=== PATIENT | female | born 1980 ===

== ENCOUNTER 2020-11-22 14:58 | Outpatient (REF) | payer OTHER, SELFPAY ==
[2020-11-25 18:11] LABS: C. trachomatis RNA TMA NOT DETECTED (NOT DETECTED); N. gonorrhoeae RNA TMA NOT DETECTED (NOT DETECTED)
== END 2020-11-22 14:59 | disposition home or self-care (01) ==
LOC: HO.LAB 14:58
PROVIDERS: Visit Provider Advanced Practice Midwife
DX: Z01.411 Encounter for gynecological examination (general) (routine) with abnormal findings (principal); R10.2 Pelvic and perineal pain; Z20.2 Contact with and (suspected) exposure to infections with a predominantly sexual mode of transmission
CPT/HCPCS: 36415; 87491; 87591

== ENCOUNTER 2020-12-03 11:38 | Outpatient (REF) | payer OTHER, SELFPAY ==
--- NOTE | ~2020-12-03 | US_ITS ---
EXAMINATION: PELVIC ULTRASOUND CLINICAL INFORMATION: Pelvic and perineal pain COMPARISON: Previous pelvic ultrasound August 2019 TECHNIQUE: Transabdominal and transvaginal pelvic ultrasound was performed. Transvaginal exam was performed for better visualization of the uterus and ovaries. FINDINGS: The uterus is anteverted and measures 10.1 x 4.1 x 5.8 cm in dimension. No focal uterine lesion is seen. Endometrial thickness is normal and measures 1.5 cm. There are nabothian cysts seen in the cervix. The ovaries are normal-appearing. The right ovary measures 4.5 x 2.8 x 1.9 cm and the left ovary measures 3.4 x 1.9 x 2.5 cm. There is no fluid in the pelvis. US/US transvaginal IMPRESSION: Unremarkable exam.
--- NOTE | ~2020-12-03 | US_ITS ---
EXAMINATION: PELVIC ULTRASOUND CLINICAL INFORMATION: Pelvic and perineal pain COMPARISON: Previous pelvic ultrasound August 2019 TECHNIQUE: Transabdominal and transvaginal pelvic ultrasound was performed. Transvaginal exam was performed for better visualization of the uterus and ovaries. FINDINGS: The uterus is anteverted and measures 10.1 x 4.1 x 5.8 cm in dimension. No focal uterine lesion is seen. Endometrial thickness is normal and measures 1.5 cm. There are nabothian cysts seen in the cervix. The ovaries are normal-appearing. The right ovary measures 4.5 x 2.8 x 1.9 cm and the left ovary measures 3.4 x 1.9 x 2.5 cm. There is no fluid in the pelvis. US/US pelvic complete IMPRESSION: Unremarkable exam.
== END 2020-12-03 11:39 | disposition home or self-care (01) ==
LOC: HO.US 11:38
PROVIDERS: Visit Provider Advanced Practice Midwife
DX: R10.2 Pelvic and perineal pain (principal)
CPT/HCPCS: 76830; 76856

== ENCOUNTER → 2020-12-06 15:47 | Outpatient (BNVA) | payer MEDICAID, SELFPAY | PROVIDERS: Visit Provider Advanced Practice Midwife | DX: Z20.2 Contact with and (suspected) exposure to infections with a predominantly sexual mode of transmission (principal) ==

== ENCOUNTER 2020-12-23 07:01 | Outpatient (RCR) | payer OTHER, SELFPAY | END 2021-01-01 08:00 | disposition home or self-care (01) | LOC: HO.PT 07:01 | PROVIDERS: PCP Internal Medicine; Visit Provider Advanced Practice Midwife | DX: R10.2 Pelvic and perineal pain (principal) | CPT/HCPCS: 97110; 97112; 97162 ==

== ENCOUNTER → 2022-07-09 09:48 | Outpatient (BNVA) | payer OTHER, SELFPAY | PROVIDERS: PCP Internal Medicine; Visit Provider Advanced Practice Midwife | DX: N90.7 Vulvar cyst (principal) | CPT/HCPCS: 99212 ==

== ENCOUNTER 2022-08-06 14:39 | Outpatient (REF) | payer OTHER, SELFPAY ==
[2022-08-11 20:52] LABS: HPV mRNA E6/E7 rflx Not Detected (Not Detected)
== END 2022-08-06 14:40 | disposition home or self-care (01) ==
LOC: HO.LNP 14:39
PROVIDERS: Visit Provider Advanced Practice Midwife
DX: Z01.419 Encounter for gynecological examination (general) (routine) without abnormal findings (principal); Z11.51 Encounter for screening for human papillomavirus (HPV)
CPT/HCPCS: 87624; 88142

== ENCOUNTER 2022-08-06 15:57 | Outpatient (REF) | payer OTHER, SELFPAY | END 2022-08-06 15:58 | disposition home or self-care (01) | LOC: HO.LNP 15:57 | PROVIDERS: Visit Provider Advanced Practice Midwife | DX: Z13.89 Encounter for screening for other disorder (principal) ==

== ENCOUNTER 2022-09-07 08:41 | Outpatient (REF) | payer OTHER, SELFPAY ==
--- NOTE | ~2022-09-07 | MM_ITS ---
EXAMINATION: MM SCREENING DIGITAL BREAST TOMOSYNTHESIS, BILATERAL CLINICAL INFORMATION: Screening. Asymptomatic. The lifetime risk of breast cancer based on the Tyrer-Cuzick Model is 8%. COMPARISON: Mammography: 10/21/2018 (baseline) TECHNIQUE: Digital breast tomosynthesis is performed in both the craniocaudal and mediolateral oblique views along with computer-aided detection (CAD). Synthesized 2D images are generated from the tomosynthesis. FINDINGS: There are scattered areas of fibroglandular density (ACR BI-RADS breast composition Category b). There are no significant masses, abnormal calcifications, or other abnormalities. Parenchymal pattern is similar to prior exam. No architectural abnormality. The axilla are unremarkable. No significant changes. MM/MM tomosynthesis screening BI IMPRESSION: No mammographic evidence of malignancy. ASSESSMENT: BI-RADS 1: Negative RECOMMENDATION: Routine annual mammography screening. This patient's information was entered into a reminder system with a target due date for their next mammogram.
== END 2022-09-07 08:42 | disposition home or self-care (01) ==
LOC: HO.MAMMO 08:41
PROVIDERS: Visit Provider Advanced Practice Midwife
DX: Z12.31 Encounter for screening mammogram for malignant neoplasm of breast (principal)
CPT/HCPCS: 77063; 77067

== ENCOUNTER 2023-08-13 10:31 | Outpatient (AMB) | payer OTHER, SELFPAY ==
[2023-08-13 10:33] VITALS: BP 106/60; PULSE 80; O2SAT 99; BMI 30.5
--- NOTE | 2023-08-13 10:33 | MHC.PC.OV ---
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: Not Required per policy Accompanied by: Self / Same As Patient Allergies acetaminophen [From PERCOCET] Allergy (Severe, Verified 08/13/23 10:47) HIVES oxycodone [From PERCOCET] Allergy (Severe, Verified 08/13/23 10:47) HIVES hydrocodone [Vicodin] Allergy (Unknown, Verified 08/13/23 10:47) Itching Medication List - Last Reconciled 08/13/23 by MARILYNN Miner multivitamin with iron (Daily Multiple Vitamins with Iron tablet) 1 tab PO DAILY Tobacco use date assessed: 08/13/23 Dental Screening Dental Screen Date: 08/13/23 Did you have a dental visit in the last 12 months?: Yes Did you have a dental problem in the last 6 months where you did not have access to dental care?: No Was dental information given to patient?: Patient has dentist HPI HPI Comments History of Present Illness Details 43-year-old female past medical history significant for pelvic pain, lumbar back pain and liver hemangioma. Patient of Dr. Howe, last seen in 2019. Patient presents today to reestablish care. 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 Patient requesting referral back to [facility] for further evaluation and treatment of this. Referral entered. Patient reports burning lumbar back pain, states she goes to the gym 3 times a week. Patient states she does not take any medications for this. Patient also reports malodorous urine, denies dysuria, frequency, hesitancy and flank. Urinalysis ordered. Fasting labs ordered. [facility] Surgical History History of loop electrical excision procedure (LEEP) Family History (Updated 08/13/23 @ 10:51 by MARILYNN Miner) Maternal Grandmother Uterine cancer Father Pacemaker Social History (Updated 08/13/23 @ 10:52 by MARILYNN Miner) Housing: House Alcohol intake: current Alcohol intake frequency: holidays/special occasions only Patient Tobacco Use Status: Current everyday Tobacco user Cigarettes Per Day: 4 e-Cigarette/Vaping Use: Never Used Current occupational status: employed Cognitive needs: No Hearing needs: No Vision needs: Yes Female Reproductive History Menstrual Age of Menarche: 14 Questionnaire PHQ-9 Over the last 2 weeks, how often have you been bothered by any of the following problems? 1. Little interest or pleasure in doing things: not at all 2. Feeling down, depressed, or hopeless: not at all 3. Trouble falling or staying asleep, or sleeping too much: not at all 4. Feeling tired or having little energy: not at all 5. Poor appetite or overeating: not at all 6. Feeling bad about yourself - or that you are a failure or have let yourself or your family down: not at all 7. Trouble concentrating on things, such as reading the newspaper or watching television: not at all 8. Moving or speaking so slowly that other people could have noticed. Or the opposite - being so fidgety or restless that you have been moving around a lot more than usual: not at all 9. Thoughts that you would be better off or of hurting yourself in some way: not at all Total score: 0 Depression Screening Interpretation: Negative Depression Screening Done: Yes 21809 - PHQ-9 Billing: Yes Source: Developed by Drs. Harsha Mosqueda, Halle Skaggs, Parker Guzman and colleagues, with an educational hermilo from [employer]. Thrive Questionnaire Date Thrive assessed: 08/13/23 I am a: Patient What is your living situation today?: I have a steady place to live Within the past 12 months, did the food you bought not last and you didn't have the money to get more?: Never true Within the past 12 months, did you worry whether your food would run out before you got money to buy more?: Never true Do you have trouble paying for medicines?: No Do you have trouble getting transportation to medical appointments?: No Do you have trouble paying your heating and electricity bill?: No Do you have trouble taking care of your child, family member or friend?: No Do you have trouble with day-to-day activities such as bathing, preparing meals, shopping, managing finances, etc.?: No Are you currently unemployed and looking for a job?: No Are you interested in more education?: No Please select the resources that you would like help with: None AUDIT C Alcohol Use Questionnaire (AUDIT-C) 1. How often do you have a drink containing alcohol?: 2-3 times a week 2. How many drinks containing alcohol do you have on a typical day when you are drinking?: 1 or 2 3. How often do you have six or more drinks on one occasion?: Never Total Score: 3 DEENA-7 AMB Questionnaire DEENA-7 Date DEENA - 7 assessed: 08/13/23 Feeling nervous, anxious, or on edge: 0 = Not at all Not being able to stop or control worryin = Not at all Worrying too much about different things: 0 = Not at all Trouble relaxin = Not at all Being so restless that it is hard to sit still: 0 = Not at all Becoming easily annoyed or irritable: 0 = Not at all Feeling afraid as if something awful might happen: 0 = Not at all Total DEENA-7 score (0-4 normal; 5-9 mild; 10-14 moderate; 15-21 severe): 0 Source: Developed by Drs. Harsha Mosqueda, Halle Skaggs, Parker Guzman and colleagues, with an educational hermilo from [employer]. DEENA-7 Assessment Billing DEENA-7 Assessment Tool: DEENA-7 Assessment 31508 Review of Systems Const Denies chills, Denies fatigue, Denies fever(s) and Denies poor appetite Eyes Denies no additional complaints ENT Reports Normal hearing present Card Denies chest pain, Denies syncope, Denies rapid heart rate and Denies dyspnea Resp Denies cough and Denies dyspnea GI Denies change in stool character, Denies constipation, Denies diarrhea, Denies nausea and Denies vomiting Denies urinary frequency, Denies dysuria and Denies urinary urgency Musc Reports back pain (lumbar ) Neuro Reports Normal hearing present, Denies confusion and Denies syncope Psych Denies confusion Endo Denies fatigue Physical exam (Primary Care) Vital Signs: Last Vital Signs Pulse 80 08/13/23 10:33 BP 106/60 08/13/23 10:33 Pulse Ox 99 08/13/23 10:33 Oxygen Delivery Method Room Air 08/13/23 10:33 BMI result Body Mass Index 30.5 Tobacco/Smoking Status: Tobacco use Status Tobacco use date assessed 08/13/23 08/13/23 10:34 Patient Tobacco Use Status Current everyday Tobacco 08/13/23 10:52 Tobacco use type 08/13/23 10:41 e-Cigarette/Vaping Use Never Used 08/13/23 10:52 PHQ-9: PHQ-9 Score PHQ-9: Total score 0 08/13/23 10:53 Depression Screening Interpretation: Negative Thrive Assessment: Date of Thrive Assessment Date Thrive assessed 08/13/23 08/13/23 10:41 Const General: No confusion Orientation/consciousness: No confusion HENMT Head: Yes normocephalic and Yes atraumatic Eyes Conjunctivae: conjunctivae normal Chest Chest palpation & inspection: normal inspection of the chest Resp Effort & Inspection: normal respiratory effort Auscultation: clear to auscultation bilaterally, no crackles, no rhonchi and no wheezes Cardio Rate: regular rate Rhythm: regular rhythm Heart sounds: S1 normal heart sound present and S2 normal heart sound present GI Inspection: Yes normal to inspection Back/Spine/Pelvis Thoracic/Lumbar Spine: thoracic and lumbar spine normal to inspection, paraspinal muscle tenderness, No thoracic spinal tenderness and No lumbar spinal tenderness Neuro General: No confusion Cranial nerves: Yes Normal hearing present Extrem General: No edema Assessment and Plan Assessment & Plan (1) Lumbar back pain: Code(s): M54.50 - Low back pain, unspecified Plan: Lumbar spine x-ray ordered. Patient advise can take [id number]-[id number] ibuprofen or Tylenol as needed for pain. If x-rays unremarkable can refer to physical therapy for this. (2) Liver hemangioma: Code(s): D18.03 - Hemangioma of intra-abdominal structures Plan: Patient previously seen by Dalia Broderick at [facility] years ago, new referral entered. Plan Follow-up in 3 months for physical exam Orders: Orders Comprehensive [place]. Panel Fast Today Z13.1 - Encounter for screening for diabetes mellitus Lipid Panel Today Z13.220 - Encounter for screening for lipoid disorders Vitamin D 25-OH Total Today Z13.21 - Encounter for screening for nutritional disorder Complete Blood Count Auto Diff Today Z13.0 - Encounter for screening for diseases of the blood and blood-forming organs and certain disorders involving the immune mechanism TSH reflex Free T4 Today Z13.29 - Encounter for screening for other suspected endocrine disorder UA CC w/rflx Micro + Cult Today R30.0 - Dysuria XR lumbar spine 2-3V Today M54.50 - Low back pain, unspecified Referrals Gastroenterology Referral D18.03 - Hemangioma of intra-abdominal structures Coding Level of Care Code New Pt Level 3 (24388) Diagnoses Lumbar back pain M54.50 Liver hemangioma D18.03 Additional Codes DEENA-7 Assessment Billing - DEENA-7 Assessment Tool: DEENA-7 Assessment 96754 ([id number])
== END 2023-08-13 11:03 | disposition home or self-care (01) ==
PROVIDERS: PCP Internal Medicine; Visit Provider Nurse Practitioner Family
DX: M54.50 Low back pain, unspecified (principal); D18.03 Hemangioma of intra-abdominal structures
CPT/HCPCS: 99203

== ENCOUNTER 2023-11-03 08:47 | Outpatient (REF) | payer OTHER, SELFPAY ==
[2023-11-04 11:45] LABS: CT PCR NOT DETECTED (Not Detect.); NG PCR NOT DETECTED (Not Detect.)
[2023-11-04 14:08] LABS: BV Int Neg Control Negative (Negative); BV Int Pos Control Positive (Positive)
[2023-11-09 04:38] LABS: HPV mRNA E6/E7 rflx Not Detected (Not Detected)
== END 2023-11-03 08:48 | disposition home or self-care (01) ==
LOC: HO.LAB 08:47
PROVIDERS: PCP Internal Medicine; Visit Provider Advanced Practice Midwife
DX: Z01.419 Encounter for gynecological examination (general) (routine) without abnormal findings (principal); Z20.2 Contact with and (suspected) exposure to infections with a predominantly sexual mode of transmission; Z98.890 Other specified postprocedural states
CPT/HCPCS: 0353U; 87480; 87510; 87624; 87660; 88142; 99396

== ENCOUNTER 2023-11-03 08:47 | Outpatient (AMB) | payer OTHER, SELFPAY ==
[2023-11-03 08:58] VITALS: BP 110/62; BMI 29.6
--- NOTE | 2023-11-03 08:58 | A.OFFVIS_ITS ---
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 Quality Control Required: No Information Interpreted: clinical only Mold Maker Helper: Mold Maker Helper Present Allergies acetaminophen [From PERCOCET] Allergy (Severe, Verified 11/03/23 08:58) HIVES oxycodone [From PERCOCET] Allergy (Severe, Verified 11/03/23 08:58) HIVES hydrocodone [Vicodin] Allergy (Unknown, Verified 11/03/23 08:58) Itching Medication List - Last Reconciled 11/03/23 by Alexandria Badillo CNM multivitamin with iron (Daily Multiple Vitamins with Iron tablet) 1 tab PO DAILY Is last menstrual period known: Yes Last menstrual period: 10/26/23 Do you need a note to return to daycare/school/sports/work: No HPI 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 She has not having any problems she just wants to see if she is aging gracefully. 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 She tries to keep herself in shape and she is working on that she tries to eat healthy. She has not sexually active right now. She has not worried about STDs but would like testing during the exam she does not feel she needs any blood work she gets tested regularly for the as well. She works for [employer] in [place]. [facility] Surgical History History of loop electrical excision procedure (LEEP) Family History Maternal Grandmother Uterine cancer Father Pacemaker Social History Housing: House Alcohol intake: current Alcohol intake frequency: holidays/special occasions only Patient Tobacco Use Status: Current everyday Tobacco user Cigarettes Per Day: 4 e-Cigarette/Vaping Use: Never Used Current occupational status: employed Cognitive needs: No Hearing needs: No Vision needs: Yes Female Reproductive History Menstrual Age of Menarche: 14 Duration of menses: 6-7 days Date of last menstrual period: 10/26/23 control method: none Total pregnancies: 5 Full term: 3 Date of last pap smear: 08/06/22 (neg & 2017,neg) History of abnormal pap smear: Yes (CIN2,2009,LGSIL 2007) Physical Exam Vital Signs: Last Vital Signs BP 110/62 11/03/23 08:58 BMI result Body Mass Index 29.6 Const General: healthy appearing, no acute distress, well developed and alert Nutritional Appearance: average body habitus Orientation/consciousness: patient oriented x3 Limitations: no limitations HEENT Head: Yes normocephalic Neck Neck: Yes normal visual inspection Chest Chest palpation & inspection: normal inspection of the chest Breast/axilla inspection: normal inspection of the breasts and normal inspection of the axillae Breast/axilla palpation: normal palpation of the breasts and normal palpation of the axillae Resp Effort & Inspection: normal respiratory effort GI Inspection: Yes normal to inspection, No Abdominal wall edema and No distended Palpation (GI): Soft to palpation and nontender Other: Normal vaginal exam vagina pink moist cervix multiparous anterior status post LEEP smooth no abnormal discharge uterus small firm anteverted mobile nontender very good tone with Kegel adnexa not tender not enlarged General: Yes bladder normal to palpation External Female Exam: normal external appearance and normal appearance of the urethra Speculum Exam - Vagina: normal appearance of the vagina, normal palpation and normal vaginal discharge Speculum Exam - Cervix: normal appearance of the cervix, normal palpation and nontender Bimanual exam- vagina & uterus: normal bimanual exam, normal palpation, uterine size normal, bladder normal to palpation, consistency normal, normal palpation, uterine mobility normal, uterine shape normal, No Cervical tenderness present, non-tender and no cervical motion tenderness Bimanual Exam- Adnexa, other: normal adnexae, no masses, normal and No adnexal tenderness Neuro General: patient oriented x3 Results Reviewed Results Reviewed: Name: America Pacheco Age/Sex: 42/F Attending: Alexandria Badillo CNM : 1980 Submitted by: Alexandria Badillo CNM Copies to: MR #: [id number] Status: DEP REF Collected: 08/06/22 Location: [facility] Received: 08/07/22 Interpretation Satisfactory for evaluation. Negative for intraepithelial lesion or malignancy. HPV mRNA E6/E7: NOT DETECTED This assay detects E6/E7 viral messenger RNA (mRNA) from 14 high-risk HPV types (16, 18, 31, 33, 35, 39, 45, 51, 52, 56, 58, 59, 66, 68) HPV testing performed by [employer], [place], [place]. See reference laboratory portion of the EMR for entire report. Clinical Information LMP: 07/19/22 Previous PAP test: 06/08/17, WNL Material Received ThinPrep-Cervical Electronically Signed By: Kandis Turk 08/17/22 0959 The Pap Test is a screening procedure with the inherent possibility of both false negative and false positive results. Results should be interpreted in the context of historic and current clinical findings. Reliability of the Pap Test is enhanced by performing the test on a regular repetitive basis. Patient: America Pacheco Age/Sex: 42/F MR#: [id number] Page 1 of 1 Assessment & Plan Assessment & Plan (1) History of loop electrical excision procedure (LEEP): Comment: X2. pap done 08/06/22= neg/ neg. Code(s): Z98.890 - Other specified postprocedural states (2) Well woman exam with routine gynecological exam: Code(s): Z01.419 - Encounter for gynecological examination (general) (routine) without abnormal findings (3) Cervical cancer screening: Code(s): Z12.4 - Encounter for screening for malignant neoplasm of cervix (4) Breast cancer screening: Code(s): Z12.39 - Encounter for other screening for malignant neoplasm of breast Plan Reviewed self-care, reviewed fertility awareness. Condoms are useful as well. Reviewed screening mammograms she has 1 coming up. Pap smear was done though her last 1 was negative. -----Discussed in this visit the following: healthy balanced diet, regular and consistent exercise, getting recommended health screens, doing the best she can for her particular health concerns, kegel exercises, pap smear screening and followup recommendations, mammography screening and SBE, normal changes in cycles in her life stage--- . We will see her in 1 year or p.r.n. Orders: Orders CT NG by PCR Today Z01.419 - Encounter for gynecological examination (general) (routine) without abnormal findings Bacterial Vaginosis Panel Today Z20.2 - Contact with and (suspected) exposure to infections with a predominantly sexual mode of transmission Pap Smear Today Z01.419 - Encounter for gynecological examination (general) (routine) without abnormal findings Coding Level of Care Code Est Pt Prev Care 40-64y(95273) Diagnoses History of loop electrical excision procedure (LEEP) Z98.890 Well woman exam with routine gynecological exam Z01.419 Cervical cancer screening Z12.4 Breast cancer screening Z12.39
== END 2023-11-03 10:16 | disposition home or self-care (01) ==
LOC: HO.HWSM 08:47
PROVIDERS: PCP Internal Medicine; Visit Provider Advanced Practice Midwife
DX: Z01.419 Encounter for gynecological examination (general) (routine) without abnormal findings (principal); Z98.890 Other specified postprocedural states; Z12.4 Encounter for screening for malignant neoplasm of cervix; Z12.39 Encounter for other screening for malignant neoplasm of breast
CPT/HCPCS: 99396

== ENCOUNTER 2023-12-23 12:32 | Outpatient (AMB) | payer OTHER, SELFPAY ==
--- NOTE | 2023-12-23 12:39 | MHC.OFFVIS ---
Intake Vital Signs 12/23/23 12:44 Height 5 ft 3 in Weight 161 lb BMI 28.5 BP 112/60 Blood Pressure Location Lt brachial Position Sitting Intake Visit Reasons: Colposcopy Identification Officer Required: No Information Interpreted: non-clinical & clinical Global Account Director: Global Account Director Present Accompanied by: Self / Same As Patient Allergies acetaminophen [From PERCOCET] Allergy (Severe, Verified 12/23/23 12:43) HIVES oxycodone [From PERCOCET] Allergy (Severe, Verified 12/23/23 12:43) HIVES hydrocodone [Vicodin] Allergy (Unknown, Verified 12/23/23 12:43) Itching Is last menstrual period known: Yes Last menstrual period: 11/30/23 Post menopausal: No Patient : No HPI HPI Comments History of Present Illness Details Presenting referred for abnormal Pap smear showing LSIL/HPV negative PFSH Surgical History History of loop electrical excision procedure (LEEP) Family History Maternal Grandmother Uterine cancer Father Pacemaker Social History Housing: House Alcohol intake: current Alcohol intake frequency: holidays/special occasions only Patient Tobacco Use Status: Current everyday Tobacco user Cigarettes Per Day: 4 e-Cigarette/Vaping Use: Never Used Patient : No Current occupational status: employed Cognitive needs: No Hearing needs: No Vision needs: Yes Female Reproductive History Menstrual Age of Menarche: 14 Date of last menstrual period: 11/30/23 Review of Systems Const All systems reviewed & are unremarkable except as noted in HPI and below Physical Exam Vital Signs: Last Vital Signs BP 112/60 12/23/23 12:44 BMI result Body Mass Index 28.5 General: Yes no CVA tenderness External Female Exam: normal external appearance and normal appearance of the urethra Speculum Exam - Vagina: normal appearance of the vagina, normal palpation, no lesions and no masses Speculum Exam - Cervix: normal appearance of the cervix, normal palpation, no lesions, no masses and nontender Bimanual exam- vagina & uterus: normal bimanual exam, normal palpation, uterine size normal, normal palpation, uterine shape normal, No Cervical tenderness present and non-tender Bimanual Exam- Adnexa, other: normal adnexae Back/Spine/Pelvis Back: no CVA tenderness Office Procedures Colposcopy Before the procedure was started discussed with the patient the procedure, alternatives & all the risks associated with the procedure (bleeding, infection, injury to vagina, bladder, vessels, possible need for transfusion with all its risks) then patient signed the consent UPT done in the office & negative Pap smear = LSIL/HPV negative Speculum inserted, acetic acid used Colposcopy done Transformation zone seen, acetowhite lesions identified at 6+9+12+1+3+4 o?clock, cervical biopsies taken from 6+9+12+1+3+4 o?clock, ECC done afterwards. Vaginoscopy of the upper vagina showed no evidence of any aceto-white lesions Monsel solution used for hemostasis. The patient tolerated well . At the end the patient was instructed to call if temp>100.4, abdominal pain, n/v, bleeding; The patient was given the following instructions: nothing per vagina, no intercourse or bath tub use. All questions answered the patient verbalized understanding. Instructed the patient to make an appointment in 2 weeks for follow-up This note was generated with a voice recognition program. Some errors may have been overlooked during the review of this note. Sometimes these errors may affect the content or meaning of a given sentence. [id number] of cervix including upper vagina with biopsy and ECC Procedure code (CPT) selection complete Assessment & Plan Assessment & Plan (1) LGSIL on Pap smear of cervix: Code(s): R87.612 - Low grade squamous intraepithelial lesion on cytologic smear of cervix (LGSIL) Plan: Discussed with the patient the result of her abnormal pap, its significance, risk of progression, persistence, and regression. the false positive/negative rate of a Pap smear as a screening test in detecting cervical cancer and the indication for a diagnostic test -colposcopy, biopsy, endocervical curettage. Colposcopy done, see procedure note. The patient verbalized understanding and agreed with the plan, all questions answered. Orders: Orders AMB Colposcopy Today R87.612 - Low grade squamous intraepithelial lesion on cytologic smear of cervix (LGSIL) Coding Level of Care Code Procedure Only Diagnoses LGSIL on Pap smear of cervix R87.612 CPT Codes Colposcopy - CPT: 45833-Jqmrmtcda of cervix including upper vagina with biopsy and ECC ([id number])
[2023-12-23 12:44] VITALS: BP 112/60; BMI 28.5
== END 2023-12-23 13:10 | disposition home or self-care (01) ==
PROVIDERS: PCP Internal Medicine; Visit Provider Obstetrics & Gynecology
DX: R87.612 Low grade squamous intraepithelial lesion on cytologic smear of cervix (LGSIL) (principal); Z32.02 Encounter for pregnancy test, result negative
CPT/HCPCS: 57454

== ENCOUNTER 2023-12-23 12:32 | Outpatient (REF) | payer OTHER, SELFPAY | END 2023-12-23 12:33 | disposition home or self-care (01) | LOC: HO.LNP 12:32 | PROVIDERS: PCP Internal Medicine; Visit Provider Obstetrics & Gynecology | DX: R87.612 Low grade squamous intraepithelial lesion on cytologic smear of cervix (LGSIL) (principal); Z32.02 Encounter for pregnancy test, result negative | CPT/HCPCS: 57454; 81025; 88305 ==

== ENCOUNTER 2024-02-02 10:42 | Outpatient (AMB) | payer OTHER, SELFPAY ==
--- NOTE | 2024-02-02 10:50 | MHC.OFFVIS ---
Vital Signs 02/02/24 10:53 Height 5 ft 3 in Weight 160 lb 14.999 oz BMI 28.5 BP 118/70 Intake Visit Reasons: Colpo results Allergies acetaminophen [From PERCOCET] Allergy (Severe, Verified 12/23/23 12:43) HIVES oxycodone [From PERCOCET] Allergy (Severe, Verified 12/23/23 12:43) HIVES hydrocodone [Vicodin] Allergy (Unknown, Verified 12/23/23 12:43) Itching HPI Comments Details: Presenting post colpo for follow-up. The patient is doing well with no complaints. The pathology showed the following: A. Endocervix, curettage: Benign endocervical glandular and squamous epithelium, and fragments of benign endometrium; negative for dysplasia. B. Cervix, 3:00, biopsy: Squamous mucosa; negative for dysplasia; no endocervical glandular component present. C. Cervix, 4:00, biopsy: Squamous mucosa with focal mild atypia and endocervical glandular mucosa (see comment). D. Cervix, 6:00, biopsy: Squamous and endocervical glandular mucosa; negative for dysplasia. E. Cervix, 9:00, biopsy: Squamous and endocervical glandular mucosa; negative for dysplasia. F. Cervix, 12:00, biopsy: Squamous mucosa with reactive changes, parakeratosis, and hyperkeratosis; negative for dysplasia; no endocervical glandular component present. Comment: (C): The atypia is insufficient for an unequivocal diagnosis of low-grade dysplasia, and may represent a resolving process. There is no evidence of high-grade dysplasia. The dysplastic cells in the patient's previous Pap test ([id number]) have some similarities to the atypia seen in the current biopsy [facility] Surgical History History of loop electrical excision procedure (LEEP) Family History Maternal Grandmother Uterine cancer Father Pacemaker Social History Housing: House Alcohol intake: current Alcohol intake frequency: holidays/special occasions only Patient Tobacco Use Status: Current everyday Tobacco user Cigarettes Per Day: 4 e-Cigarette/Vaping Use: Never Used Current occupational status: employed Cognitive needs: No Hearing needs: No Vision needs: Yes Female Reproductive History Menstrual Age of Menarche: 14 Date of last menstrual period: 12/31/23 Review of Systems Const All systems reviewed & are unremarkable except as noted in HPI and below Reports as per HPI and Reports no additional complaints GI Reports no additional complaints Reports no additional complaints Physical Exam Vital Signs: Last Vital Signs BP 118/70 02/02/24 10:53 BMI result Body Mass Index 28.5 Assessment & Plan Assessment & Plan (1) LGSIL on Pap smear of cervix: Code(s): R87.612 - Low grade squamous intraepithelial lesion on cytologic smear of cervix (LGSIL) Category: Medical Plan: Discussed with the patient the pathology results of the colposcopy biopsies & endocervical curettage ( 04:00 o'clock biopsy atypia not sufficient for LAURA 1 otherwise negative). Discussed with the patient the sensitivity specificity, positive and negative predictive value in detecting cervical cancer in addition discussed the regression, persistence and progression rates. Recommended co-testing in 12 months, if cytology and or HPV are abnormal will proceed was colposcopy biopsy and endocervical curettage. Instructions given to the patient to schedule a co test appointment in 1 year. All questions answered the patient verbalized understanding. Coding Level of Care Code Est Pt Level 3 (95492) Diagnoses LGSIL on Pap smear of cervix R87.612
[2024-02-02 10:53] VITALS: BP 118/70; BMI 28.5
== END 2024-02-02 15:57 | disposition home or self-care (01) ==
PROVIDERS: PCP Internal Medicine; Visit Provider Obstetrics & Gynecology
DX: R87.612 Low grade squamous intraepithelial lesion on cytologic smear of cervix (LGSIL) (principal)
CPT/HCPCS: 99213

== ENCOUNTER → 2024-02-02 10:42 | Outpatient (BNVA) | payer OTHER, SELFPAY | PROVIDERS: PCP Internal Medicine; Visit Provider Obstetrics & Gynecology | DX: R87.612 Low grade squamous intraepithelial lesion on cytologic smear of cervix (LGSIL) (principal) | CPT/HCPCS: 99212 ==